=== PATIENT | male | born 1965 | race Caucasian/White ===

== ENCOUNTER 2022-06-10 06:52 | Day surgery (SDC) | payer OTHER ==
[2022-05-31 11:54] LABS: BASOPHILS # (AUTO) 0.1 X10'3 (0-0.2); BASOPHILS % (AUTO) 0.9 % (0-1); EOSINOPHILS # (AUTO) 0.1 X10'3 (0-0.9); EOSINOPHILS % (AUTO) 1.6 % (0-6); LYMPHOCYTES # (AUTO) 3.8 X10'3 (1.1-4.8); LYMPHOCYTES % (AUTO) 45.2 % (21-51); MEAN CORPUSCULAR HEMOGLOBIN 34.9 PG (27.0-31.0); MEAN CORPUSCULAR HGB CONC 35.3 g/dL (33.0-36.5); MEAN CORPUSCULAR VOLUME 98.7 FL (78-98); MEAN PLATELET VOLUME 6.3 FL (7.4-10.4); MONOCYTES # (AUTO) 0.5 X10'3 (0-0.9); MONOCYTES % (AUTO) 5.5 % (2-12); NEUTROPHILS # (AUTO) 3.9 X10'3 (1.8-7.7); NEUTROPHILS % (AUTO) 46.8 % (42-75); PRE OP HEMATOCRIT 43.9 % (42.0-52.0); PRE OP HEMOGLOBIN 15.5 g/dL (14.0-17.9); PRE OP PLATELET COUNT 182 X10'3 (140-440); RED BLOOD COUNT 4.45 X10'6 (4.70-6.10); RED CELL DISTRIBUTION WIDTH 12.3 % (11.5-14.5)
[2022-05-31 11:55] LABS: CLARITY,URINE CLEAR (Clear); COLOR,URINE YELLOW (Yellow); GLUCOSE, URINE NEGATIVE (Neg); KETONES,URINE NEGATIVE (Neg); LEUKOCYTE ESTERASE ,URINE NEGATIVE (Neg); NITRITES, URINE NEGATIVE (Neg); OCCULT BLOOD,URINE NEGATIVE (Neg); PROTEIN,URINE NEGATIVE (Neg); UROBILINOGEN,URINE 0.2 E.U/dL (0.2-1.0)
[2022-05-31 11:56] LABS: UA COLLECTION TYPE CLN CATCH MIDSTREAM
[2022-05-31 12:08] LABS: ALBUMIN 4.3 G/DL (3.4-5.0); ALBUMIN/GLOBULIN RATIO 1.3 (1.1-1.5); ALKALINE PHOSPHATASE 65 IU/L (46-116); BLOOD UREA NITROGEN 15 MG/DL (7-18); CALCIUM 9.2 MG/DL (8.5-10.1); CHLORIDE 102 MMOL/L (99-107); CREATININE 0.88 MG/DL (0.60-1.10); PRE OP ALT 32 U/L (30-65); PRE OP ANION GAP 6 (8-16); PRE OP AST 23 U/L (10-37); PRE OP BILIRUB, TOTAL 0.5 MG/DL (0.0-1.0); PRE OP GLUCOSE 110 MG/DL (70-104); PRE OP SODIUM 139 MMOL/L (135-145); TOTAL PROTEIN 7.5 G/DL (6.4-8.2); eGFR 90 ML/MIN
[~2022-06-10] VITALS: Ht 182.9 cm; Wt 102.1 kg
[2022-06-10] MEDS: ceFAZolin inj. 2,000 MG in dextrose 5%-water 100 ML IV ONE (05:30)
[~2022-06-10 06:52] MED LIST: ACET-812 PO; IBUP-1985 PO; LISI20TA28 PO; METF-438 PO
[2022-06-10] MEDS: famotidine 20mg tablet PO ONE (07:44)
[2022-06-10] MEDS: ringers solution, lacted 1,000 ML IV SCH (07:44)
[2022-06-10 08:25] VITALS: BP 114/67
[2022-06-10] MEDS ORDERED: bacitracin 15gm ointment TP ONE (09:41)
[2022-06-10] MEDS ORDERED: BUPIVAcaine 0.5% inj/PF 0 ML ONE (09:41)
[2022-06-10] MEDS ORDERED: cloNIDine hcl/PF 100mcg/ml inj ONE (09:53)
[2022-06-10] MEDS ORDERED: propofol inj 20 ML IV ONE (09:57)
[2022-06-10] MEDS ORDERED: midazolam 1 mg/ML 2ml injection ONE (09:57)
[2022-06-10] MEDS ORDERED: fentaNYL/PF 50MCG/1 ML 2ML syringe ONE (09:57)
[2022-06-10] MEDS ORDERED: meperidine/PF 25mg/ml syringe IV PRN ×3 (10:25)
[2022-06-10] MEDS ORDERED: morphine 2 MG/ML inj. syringe IV PRN (10:25)
[2022-06-10] MEDS ORDERED: morphine 4 MG/ML inj SYRINge IV PRN (10:25)
[2022-06-10] MEDS ORDERED: proCHLORperazine 10 MG/2 ml inj IV PRN (10:25)
[2022-06-10] MEDS ORDERED: ringers solution, lacted 1,000 ML IV SCH (10:25)
[2022-06-10] MEDS ORDERED: ondansetron/PF 4mg/2ml inj IV PRN (10:25)
[2022-06-10] MEDS ORDERED: ROPIVAcaine 0.5% (5mg/ml) 30ml vial ONE (11:13)
[2022-06-10] MEDS ORDERED: dexamethasone sod phosphate 4mg/ml inj. ONE (11:14)
[2022-06-10] MEDS: bacitracin 15gm ointment TP ONE (11:16)
[2022-06-10 11:33] VITALS: BP 118/70
--- NOTE | 2022-06-10 11:33 | NUR ---
Received from OR via [facility] , accompanied by Anesthesiologist BENI and report given by Anesthesiolgist. PATIENT WITH 20G PIV IN LEFT UE RUNNING LR AT 100. DENIES PAIN. RIGHT LE IN BOOT WITH TOES EXPOSED. TOES ARE ALL PWD AND WITH + CAP REFILL AND MOVEMENT. VSS Addendum: 06/10/22 at 1143 by Ramon Sullivan RN, RN Amended: Links added.
[2022-06-10 11:40] VITALS: BP 110/80
[2022-06-10 11:50] VITALS: BP 107/67
[2022-06-10 12:00] VITALS: BP 117/73
--- NOTE | 2022-06-10 12:03 | NUR ---
ALL DISCHARGE CRITERIA HAS BEEN MET. VSS, PAIN AT A TOLERABLE LEVEL, ABLE TO SAFELY AMBULATE AND TRANSFER SELF. IV TAKEN OUT WITHOUT ANY COMPLICATIONS. ALL DISCHARGE INSTRUCTIONS COVERED WITH PATIENT AND ALL QUESTIONS ANSWERED. PATIENT TAKEN OUT VIA WHEELCHAIR TO PERSONAL VEHICLE WHERE FAMILY/FRIEND DROVE PATIENT HOME. MEDS ORDERED FOR [facility]. SON UNDERSTANDS DOES PATIENT. CAST ELEVATOR PROVIDED WELL. PATIENT CONTINUES TO DENY PAIN AT THIS TIME. Addendum: 06/10/22 at 1229 by Ramon Sullivan RN, RN Amended: Links added.
== END 2022-06-10 12:03 | disposition home or self-care (01) ==
LOC: PAS 06:52
PROVIDERS: ATTEND Podiatrist Foot & Ankle Surgery
DX: S82.831A Other fracture of upper and lower end of right fibula, initial encounter for closed fracture (principal); G89.18 Other acute postprocedural pain; E11.9 Type 2 diabetes mellitus without complications; I10 Essential (primary) hypertension; X58.XXXA Exposure to other specified factors, initial encounter; Y93.89 Activity, other specified; Y92.89 Other specified places as the place of occurrence of the external cause; Y99.8 Other external cause status; Z79.899 Other long term (current) drug therapy; Z98.890 Other specified postprocedural states; Z87.891 Personal history of nicotine dependence
CPT/HCPCS: 27792; 36415; 64450; 73620; 76942; 80053; 81003; 82948; 85025; 93005; A6223; C1713; J0690; J0735; J1100; J2250; J2704; J2795; J3010; J7030; J7060; J7120; Z7506; Z7508; Z7512; 76000; A4215; A4618; A6253; A6449; A7000; S0020

== ENCOUNTER 2023-05-14 22:20 | Emergency (ER) | payer OTHER ==
[~2023-05-14] VITALS: Ht 182.9 cm; Wt 95.5 kg
[2023-05-14] MEDS ORDERED: morphine 4 MG/ML inj SYRINge IV ONE ×2 (23:10→23:40)
[2023-05-14] MEDS ORDERED: morphine 10mg/ml inj. IM ONE (23:55)
[2023-05-15] MEDS ORDERED: morphine 10mg/ml inj. IM ONE ×2 (00:10→00:40)
[2023-05-15 01:17] VITALS: BP 132/72; PULSE 87; RESP 20; TEMP 98.6; O2SAT 96
== END 2023-05-15 01:18 | disposition home or self-care (01) ==
LOC: ER 22:22
DX: M25.511 Pain in right shoulder (principal); Z79.899 Other long term (current) drug therapy
CPT/HCPCS: 73030; 96372; 99284; J2274; A6449

== ENCOUNTER 2023-10-27 10:30 | Day surgery (SDC) | payer OTHER ==
[2023-10-17 15:20] LABS: BILIRUBIN,URINE NEGATIVE (Neg); CLARITY,URINE CLEAR (Clear); COLOR,URINE STRAW (Yellow); GLUCOSE, URINE NEGATIVE (Neg); KETONES,URINE NEGATIVE (Neg); LEUKOCYTE ESTERASE ,URINE NEGATIVE (Neg); NITRITES, URINE NEGATIVE (Neg); OCCULT BLOOD,URINE NEGATIVE (Neg); PH,URINE 5.5 (4.8-8.0); PROTEIN,URINE NEGATIVE (Neg); UROBILINOGEN,URINE 0.2 E.U/dL (0.2-1.0)
[2023-10-17 15:22] LABS: BASOPHILS % (AUTO) 0.5 % (0-1); EOSINOPHILS # (AUTO) 0.3 X10'3 (0-0.9); EOSINOPHILS % (AUTO) 3.4 % (0-6); LYMPHOCYTES # (AUTO) 3.2 X10'3 (1.1-4.8); LYMPHOCYTES % (AUTO) 36.2 % (21-51); MEAN CORPUSCULAR HEMOGLOBIN 34.9 PG (27.0-31.0); MEAN CORPUSCULAR HGB CONC 33.9 g/dL (33.0-36.5); MEAN CORPUSCULAR VOLUME 102.9 FL (78-98); MEAN PLATELET VOLUME 6.4 FL (7.4-10.4); MONOCYTES # (AUTO) 0.7 X10'3 (0-0.9); MONOCYTES % (AUTO) 7.6 % (2-12); NEUTROPHILS # (AUTO) 4.6 X10'3 (1.8-7.7); NEUTROPHILS % (AUTO) 52.3 % (42-75); PRE OP HEMOGLOBIN 15.3 g/dL (14.0-17.9); PRE OP PLATELET COUNT 221 X10'3 (140-440); PRE OP WHITE BLOOD COUNT 8.8 10'3 (4.8-10.8); RED BLOOD COUNT 4.37 X10'6 (4.70-6.10); RED CELL DISTRIBUTION WIDTH 13.1 % (11.5-14.5)
[2023-10-17 15:26] LABS: UA COLLECTION TYPE VOIDED
[2023-10-17 15:43] LABS: ALBUMIN 3.7 G/DL (3.4-5.0); ALBUMIN/GLOBULIN RATIO 1.1 (1.1-1.5); ALKALINE PHOSPHATASE 77 IU/L (46-116); BLOOD UREA NITROGEN 12 MG/DL (7-18); BUN/CREATININE RATIO 12.4 (10.0-20.0); CHLORIDE 106 MMOL/L (99-107); CREATININE 0.97 MG/DL (0.60-1.10); PRE OP ALT 38 U/L (30-65); PRE OP ANION GAP 8 (8-16); PRE OP AST 21 U/L (10-37); PRE OP BILIRUB, TOTAL 0.5 MG/DL (0.0-1.0); PRE OP GLUCOSE 116 MG/DL (70-104); PRE OP POTASSIUM 4.4 MMOL/L (3.4-5.1); PRE OP SODIUM 143 MMOL/L (135-145); TOTAL CARBON DIOXIDE 28.7 MMOL/L (24-32); TOTAL PROTEIN 7.2 G/DL (6.4-8.2); eGFR 80 ML/MIN
[~2023-10-27] VITALS: Ht 182.9 cm; Wt 91.3 kg
[~2023-10-27 10:30] MED LIST changes: -ACET-812 PO; -IBUP-1985 PO
[2023-10-27] MEDS: famotidine 20mg tablet PO ONE (10:51)
[2023-10-27] MEDS: ringers solution, lacted 1,000 ML IV SCH (10:51)
[2023-10-27 11:00] VITALS: BP 121/68; PULSE 64; RESP 16; TEMP 98; O2SAT 99
[2023-10-27] MEDS ORDERED: sevoflurane 250ml liquid IH ONE (12:21)
[2023-10-27] MEDS ORDERED: fentaNYL/PF 50MCG/1 ML 2ML syringe ONE (12:24)
[2023-10-27] MEDS ORDERED: midazolam 1 mg/ML 2ml injection ONE (12:25)
[2023-10-27] MEDS: BUPIVAcaine/PF 2.5mg/ml (0.25%) 10ml vial ONE (12:44)
[2023-10-27] MEDS: bacitracin 15gm ointment TP ONE (12:50)
[2023-10-27] MEDS ORDERED: propofol inj 20 ML IV ONE (12:52)
[2023-10-27] MEDS ORDERED: dexamethasone sod phosphate 4mg/ml inj. ONE (12:52)
[2023-10-27] MEDS ORDERED: ondansetron/PF 4mg/2ml inj ONE (12:52)
[2023-10-27 13:02] VITALS: BP 101/66; PULSE 72; RESP 14; O2SAT 97
[2023-10-27 13:10] VITALS: BP 103/67; PULSE 71; RESP 15; O2SAT 92
[2023-10-27 13:20] VITALS: BP 116/65; PULSE 60; RESP 16; O2SAT 96
[2023-10-27 13:30] VITALS: BP 105/59; PULSE 58; RESP 18; O2SAT 96
[2023-10-27 13:40] VITALS: BP 102/61; PULSE 58; RESP 14; O2SAT 96
[2023-10-27] MEDS: cefazolin 2gm/D5W 100mL 100 ML IV ONE (13:50)
== END 2023-10-27 14:02 | disposition home or self-care (01) ==
LOC: PAS 10:30
PROVIDERS: ATTEND Podiatrist Foot & Ankle Surgery
DX: T84.84XA Pain due to internal orthopedic prosthetic devices, implants and grafts, initial encounter (principal); I45.2 Bifascicular block; I10 Essential (primary) hypertension; E11.9 Type 2 diabetes mellitus without complications; F41.9 Anxiety disorder, unspecified; F32.A Depression, unspecified; Z87.891 Personal history of nicotine dependence; Z79.2 Long term (current) use of antibiotics; Z79.82 Long term (current) use of aspirin; Z79.84 Long term (current) use of oral hypoglycemic drugs; Z79.891 Long term (current) use of opiate analgesic; Z79.899 Other long term (current) drug therapy; Z98.890 Other specified postprocedural states; Y79.2 Prosthetic and other implants, materials and accessory orthopedic devices associated with adverse incidents; Y92.89 Other specified places as the place of occurrence of the external cause
CPT/HCPCS: 20680; 36415; 80053; 81003; 82948; 85025; 93005; A6223; J0690; J1100; J2250; J2405; J2704; J3010; J3490; J7030; J7120; Z7506; Z7512; A4215; A4618; A6449; A7000